=== PATIENT | female | born 1970 | race Caucasian/White ===

== ENCOUNTER 2020-03-31 10:27 | Outpatient (REF) | payer OTHER, SELFPAY ==
[2020-03-31 20:44] LABS: Anion Gap 7.9 mmol/L (3-11); BUN 10 mg/dL (7-18); CO2 29.1 mmol/L (21.0-32.0); Calcium 9.5 mg/dL (8.5-10.1); Calculated LDL 164 mg/dL (<100); Chloride 104 mmol/L (98-107); Cholesterol 232 mg/dL (<200); Glucose 91 mg/dL (74-106); HDL Cholesterol 45 mg/dL (40-60); Potassium 4.3 mmol/L (3.5-5.1); Sodium 141 mmol/L (136-145); Triglyceride 118 mg/dL (<150)
== END 2020-03-31 10:47 ==
LOC: NCHCN 10:27
PROVIDERS: Visit Provider Family Medicine
DX: Z00.00 Encounter for general adult medical examination without abnormal findings (principal); Z13.220 Encounter for screening for lipoid disorders
CPT/HCPCS: 80048; 80061

== ENCOUNTER 2024-01-10 11:40 | Outpatient (REF) | payer OTHER, SELFPAY ==
--- NOTE | 2024-01-10 10:30 | PAPFT_PTH ---
PATIENT: Tonya Ndiaye LOC: [facility]#:[id number] AGE/SX: 53/F ROOM: RE01/10/[address]: Cesar Fulton : 1970 BED: DIS: 01/10/2024 SPEC #: [id number] RECD: 01/10/24 18:17 STATUS: NASIR REQ #: [id number] TAMAR: 01/10/24 10:[address]: Cesar Fulton DEPT: [facility] Cytology RECD BY: Mell Francisco ENTERED: 01/10/24 18:17 SP TYPE: PAPFT OTHR DR: Unknown,Unknown Tissues: 1 - CX/ENDOCX FOR PAP SMEARS Procedures: PAP THIN PREP/[facility] Screening HPV DNA PROBE Comments: [id number]
[2024-01-10 15:34] LABS: Anion Gap 8.3 mmol/L (3-11); BUN 13 mg/dL (7-18); CO2 29.7 mmol/L (21.0-32.0); CREATININE 0.7 mg/dL (0.55-1.02); Calcium 9.5 mg/dL (8.5-10.1); Calculated LDL 129 mg/dL (<100); Chloride 106 mmol/L (98-107); Cholesterol 242 mg/dL (<200); Estimated GFR 102.07 (mL/min/1.73m2); Glucose 86 mg/dL (74-106); HDL Cholesterol 45 mg/dL (40-60); Potassium 4.1 mmol/L (3.5-5.1); Sodium 144 mmol/L (136-145); Triglyceride 341 mg/dL (<150)
== END 2024-01-10 11:41 | disposition home or self-care (01) ==
LOC: NCHCN 11:40
PROVIDERS: Visit Provider Family Medicine
DX: Z13.6 Encounter for screening for cardiovascular disorders (principal); Z12.4 Encounter for screening for malignant neoplasm of cervix; Z01.419 Encounter for gynecological examination (general) (routine) without abnormal findings
CPT/HCPCS: 80048; 80061; 88142; 87624

== ENCOUNTER 2025-09-09 10:09 | Outpatient (REF) | payer OTHER, SELFPAY ==
[2025-09-09 16:53] LABS: Vitamin D 25 Total 28 ng/mL (30-100)
[2025-09-09 17:13] LABS: Anion Gap 5.6 mmol/L (3-11); BUN 11 mg/dL (9-23); CO2 29.4 mmol/L (20.0-31.0); Calcium 9.6 mg/dL (8.3-10.6); Chloride 107 mmol/L (98-107); Cholesterol 222 mg/dL (<200); Glucose 97 mg/dL (74-106); HDL Cholesterol 49 mg/dL (>40); Potassium 4.6 mmol/L (3.5-5.1); Sodium 142 mmol/L (136-145)
== END 2025-09-09 10:10 | disposition home or self-care (01) ==
LOC: NCHCN 10:09
PROVIDERS: Visit Provider Family Medicine
DX: Z00.00 Encounter for general adult medical examination without abnormal findings (principal)
CPT/HCPCS: 80048; 80061; 82306